=== PATIENT | female | born 1970 | race African-American/Black ===

== ENCOUNTER 2016-07-07 01:10 | Emergency (ER) | payer BC ==
[~2016-07-07] VITALS: Ht 165.1 cm; Wt 90.7 kg
[2016-07-07] MEDS ORDERED: FLUT9.9S NS (01:47)
[2016-07-07] MEDS ORDERED: IBUP200T77 PO (01:47)
[2016-07-07] MEDS ORDERED: LORA10TA3 PO (01:47)
--- NOTE | 2016-07-07 01:48 | PHYS DOC ---
Past Medical History Past Medical History: No Pertinent History Past Surgical History: No Surgical History Smoking: Cigarettes Alcohol Use: None Drug Use: None Adult General Chief Complaint Chief Complaint: EARACHE/EAR PAIN HPI HPI Patient is a 45 year old female who presents with few days of sneezing, rhinorrhea, postnasal drip, nasal congestion, bilateral ear pain, and sore throat. Symptoms are gradually worsening. Symptoms are not resolved with over- the-counter cough medicines. She denies fever or chills, cough, dyspnea, nausea or vomiting, headache, dizziness, chest pain, abdominal pain, diarrhea, dysuria. Review of Systems Review of Systems Constitutional: Denies fever or chills [] Eyes: Denies change in visual acuity, redness, or eye pain [] HENT: Has nasal congestion and sore throat [] Respiratory: Denies cough or shortness of breath [] Cardiovascular: No additional information not addressed in HPI [] GI: Denies abdominal pain, nausea, vomiting, bloody stools or diarrhea [] : Denies dysuria or hematuria [] Musculoskeletal: Denies back pain or joint pain [] Integument: Denies rash or skin lesions [] Neurologic: Denies headache, focal weakness or sensory changes [] Endocrine: Denies polyuria or polydipsia [] Physical Exam Physical Exam Constitutional: Well developed, well nourished, no acute distress, non-toxic appearance. [] HENT: Normocephalic, atraumatic, bilateral TMs with air congestion, oropharynx moist, no oral exudates, nose normal. [] Eyes: PERRLA, EOMI, conjunctiva normal, no discharge. [] Neck: Normal range of motion, no tenderness, supple, no stridor. [] Cardiovascular:Heart rate regular rhythm [] Lungs & Thorax: Bilateral breath sounds clear to auscultation [] Abdomen: Bowel sounds normal, soft, no tenderness. [] Skin: Warm, dry, no erythema, no rash. [] Back: No tenderness, no CVA tenderness. [] Extremities: No tenderness, ROM intact, no edema. [] Neurologic: Alert and oriented X 3, normal motor function, normal sensory function, no focal deficits noted. [] Psychologic: Affect normal, judgement normal, mood normal. [] Current Patient Data Vital Signs Vital Signs Date Time Temp Pulse Resp B/P Pulse Ox O2 Delivery O2 Flow Rate FiO2 07/07/16 01:51 98.5 114 18 98 Room Air 98.5 Course & Med Decision Making Course & Med Decision Making Pertinent Labs and Imaging studies reviewed. (See chart for details) Discussed symptomatic care for likely allergic rhinitis vs viral URI. Return precautions given. She understands and agrees with plan. Dragon Disclaimer Dragon Disclaimer This electronic medical record was generated, in whole or in part, using a voice recognition dictation system. Departure Departure Impression: Primary Impression: Allergic rhinitis Disposition: HOME, SELF-CARE Condition: STABLE Referrals: NO PCP (PCP) Patient Instructions: Allergic Rhinitis Additional Instructions: Take ibuprofen as needed for pain. Take Claritin (loratadine) and Flonase to help with possible allergies. Follow-up with your primary care doctor. Return for any concerns. Scripts Ibuprofen 200 Mg [id number] Mg PO PRN Q6HRS PRN PAIN #90 TAB Prov:Kevin ROME MD 07/07/16 Loratadine 10 Mg Tablet1 Tab PO DAILY #30 TAB Prov:Kevin ROME MD 07/07/16 Fluticasone Propionate (Flonase Allergy Relief)9.9 Ml [place].susp2 Sprays NS DAILY #1 BOTTLE Prov:Kevin ROME MD 07/07/16 Problem Qualifiers Primary Impression: Allergic rhinitis Allergic rhinitis trigger: unspecified Allergic rhinitis seasonality: unspecified seasonality Qualified Code: J30.9 - Allergic rhinitis, unspecified Kevin ROME MD Jul 07, 2016 01:48
[2016-07-07 01:51] VITALS: BP 199/114
== END 2016-07-07 02:00 | disposition home or self-care (01) ==
LOC: ER 01:10
DX: J30.9 Allergic rhinitis, unspecified (principal); F17.210 Nicotine dependence, cigarettes, uncomplicated
CPT/HCPCS: 99283

== ENCOUNTER 2018-07-31 22:54 | Emergency (ER) | payer BC, OTHER ==
[~2018-07-31] VITALS: Ht 160 cm; Wt 102.1 kg
[~2018-07-31 22:54] MED LIST: FLUT9.9S NS; IBUP200T77 PO; LORA10TA3 PO
[2018-07-31 23:05] VITALS: BP 171/80
[2018-07-31 23:35] LABS: BILIRUBIN,URINE NEGATIVE (NEG); CLARITY,URINE CLEAR; COLOR,URINE YELLOW; NITRITE,URINE NEGATIVE (NEG); PH,URINE 5.5; PROTEIN,URINE NEGATIVE (NEG-TRACE)
[2018-07-31 23:41] LABS: BACTERIA,URINE MODERATE /HPF (0-FEW); RBC,URINE 0 /HPF (0-2); SQUAMOUS EPITHELIAL CELL,UR MANY /LPF
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
[2018-08-01] MEDS ORDERED: CYCL5TAB PO (00:52)
== END 2018-08-01 01:00 | disposition home or self-care (01) ==
LOC: ER 22:54
DX: M25.512 Pain in left shoulder (principal); M54.5 Low back pain; Z90.89 Acquired absence of other organs
CPT/HCPCS: 72131; 73030; 81001; 81025; 87086; 99285-25

== ENCOUNTER → 2020-07-07 | Outpatient (CLI) | payer OTHER ==
[~2020-07-07] MED LIST changes: +CYCL5TAB PO
--- NOTE | 2020-07-07 16:29 | KCIC ---
Bilateral digital screening mammograms: Reason for examination: Routine screening. Comparison is made to previous study dated 10/10/2012. Interpretation was made with the benefit of CAD. The skin and nipples show no abnormalities. No abnormal axillary lymph nodes are seen. The breast par enchyma shows scattered fibroglandular density. (Breast density: Category B.) There continues to be a small nodule present centrally at the 9:00 B position of the left breast which is stable. There also appears to be a small intramammary lymph node at 3:00 position posteriorly left breast. There are no new dominant masses, suspicious calcifications or architectural distortions. Impression: No evidence of malignancy. Recommend routine screening. BI-RADS Category 2: Benign. "Our facility is accredited by the [employer] Mammography Program." This patient's information has been entered into a reminder system for the patient to be notified wit h the results of her examination and a target date for the next mammogram. Electronically signed by: Leandra Hamilton MD (07/07/2020 4:27 PM) [id number]
== END ==
LOC: KCIC MAMMO 13:49
PROVIDERS: ATTEND Internal Medicine
DX: Z12.31 Encounter for screening mammogram for malignant neoplasm of breast (principal)
CPT/HCPCS: 77067